=== PATIENT | female | born 1985 | race Two or more races ===

== ENCOUNTER 2019-07-05 19:01 | Emergency (ER) | payer OTHER ==
[~2019-07-05] VITALS: Ht 165.1 cm; Wt 90.7 kg
[2019-07-05 19:14] VITALS: BP 127/85
--- NOTE | 2019-07-05 19:27 | NUR ---
CALLED FOR COVID
== END 2019-07-05 19:45 | disposition home or self-care (01) ==
LOC: ER 19:09
DX: Z03.818 Encounter for observation for suspected exposure to other biological agents ruled out (principal)
CPT/HCPCS: 99283; U0003

== ENCOUNTER 2019-08-02 17:03 | Emergency (ER) | payer OTHER ==
[~2019-08-02] VITALS: Ht 165.1 cm; Wt 122.5 kg
[2019-08-02 17:27] VITALS: BP 138/82
--- NOTE | 2019-08-02 18:50 | NUR ---
Patient discharged to home in stable condition. Written and verbal after care instructions given. Patient verbalizes understanding of instruction.
== END 2019-08-02 18:50 | disposition home or self-care (01) ==
LOC: ER 17:05
DX: Z11.59 Encounter for screening for other viral diseases (principal)
CPT/HCPCS: 99283; C9803; U0003

== ENCOUNTER 2019-08-11 17:03 | Emergency (ER) | payer OTHER ==
[~2019-08-11] VITALS: Ht 165.1 cm; Wt 124.7 kg
[2019-08-11 17:10] VITALS: BP 154/98
--- NOTE | 2019-08-11 17:23 | NUR ---
COVID SWAB DONE AND SENT TO LAB
== END 2019-08-11 17:24 | disposition home or self-care (01) ==
LOC: ER 17:05
DX: Z11.59 Encounter for screening for other viral diseases (principal)
CPT/HCPCS: 99283; C9803; U0003

== ENCOUNTER 2019-09-13 10:12 | Emergency (ER) | payer OTHER ==
[~2019-09-13] VITALS: Ht 170.2 cm; Wt 90.7 kg
[2019-09-13 10:15] VITALS: BP 133/81
== END 2019-09-13 10:34 | disposition home or self-care (01) ==
LOC: ER 10:14
DX: Z11.59 Encounter for screening for other viral diseases (principal)
CPT/HCPCS: 99283; C9803; U0003

== ENCOUNTER 2019-09-19 10:22 | Emergency (ER) | payer OTHER ==
[~2019-09-19] VITALS: Ht 165.1 cm; Wt 122.5 kg
[2019-09-19 10:24] VITALS: BP 133/65
== END 2019-09-19 10:45 | disposition home or self-care (01) ==
LOC: ER 10:24
DX: Z20.828 Contact with and (suspected) exposure to other viral communicable diseases (principal)
CPT/HCPCS: 99283; C9803; U0003

== ENCOUNTER 2019-10-03 11:04 | Emergency (ER) | payer OTHER ==
[~2019-10-03] VITALS: Ht 167.6 cm; Wt 102.1 kg
[2019-10-03 11:14] VITALS: BP 120/70
--- NOTE | 2019-10-03 11:25 | NUR ---
COVID SPECIMEN OBTAINED AND SENT TO LAB.
--- NOTE | 2019-10-03 11:27 | NUR ---
Patient discharged to home in stable condition. Written and verbal after care instructions given. Patient verbalizes understanding of instruction.
== END 2019-10-03 11:28 | disposition home or self-care (01) ==
LOC: ER 11:05
DX: Z20.828 Contact with and (suspected) exposure to other viral communicable diseases (principal)
CPT/HCPCS: 99283; C9803; U0003

== ENCOUNTER 2019-10-09 15:45 | Emergency (ER) | payer OTHER ==
[~2019-10-09] VITALS: Ht 165.1 cm; Wt 122.5 kg
== END 2019-10-09 16:16 | disposition home or self-care (01) ==
LOC: ER 15:46
DX: Z20.828 Contact with and (suspected) exposure to other viral communicable diseases (principal)
CPT/HCPCS: 99283; C9803; U0003

== ENCOUNTER 2019-10-24 18:33 | Emergency (ER) | payer OTHER ==
[~2019-10-24] VITALS: Ht 165.1 cm; Wt 122.5 kg
[2019-10-24 18:44] VITALS: BP 128/80
== END 2019-10-24 19:05 | disposition home or self-care (01) ==
LOC: ER 18:36
DX: Z20.828 Contact with and (suspected) exposure to other viral communicable diseases (principal)
CPT/HCPCS: 99283; C9803; U0003

== ENCOUNTER 2019-10-31 09:41 | Emergency (ER) | payer OTHER ==
[~2019-10-31] VITALS: Ht 165.1 cm; Wt 122.5 kg
[2019-10-31 09:41] VITALS: BP 119/75
== END 2019-10-31 10:32 | disposition home or self-care (01) ==
LOC: ER 09:43
DX: Z20.828 Contact with and (suspected) exposure to other viral communicable diseases (principal)
CPT/HCPCS: C9803-CS; U0003-CS

== ENCOUNTER 2019-11-07 12:11 | Emergency (ER) | payer OTHER ==
[~2019-11-07] VITALS: Ht 165.1 cm; Wt 122.5 kg
[2019-11-07 12:11] VITALS: BP 124/90
--- NOTE | 2019-11-07 12:41 | NUR ---
SWABBED AND SENT TO LAB. NO ACI D/C IN STABLE CONDITION.
== END 2019-11-07 12:42 | disposition home or self-care (01) ==
LOC: ER 12:12
DX: Z20.828 Contact with and (suspected) exposure to other viral communicable diseases (principal)
CPT/HCPCS: 99283; C9803; U0003

== ENCOUNTER 2019-11-20 16:32 | Emergency (ER) | payer OTHER ==
[~2019-11-20] VITALS: Ht 165.1 cm; Wt 74.8 kg
[2019-11-20 16:39] VITALS: BP 130/75
--- NOTE | 2019-11-20 17:21 | NUR ---
Covid swab sent. Patient discharged to home in stable condition. Written and verbal after care instructions given. Patient verbalizes understanding of instruction.
== END 2019-11-20 17:22 | disposition home or self-care (01) ==
LOC: ER 16:33
DX: Z20.828 Contact with and (suspected) exposure to other viral communicable diseases (principal)
CPT/HCPCS: 99283; C9803; U0003

== ENCOUNTER 2019-11-28 09:37 | Emergency (ER) | payer OTHER ==
[~2019-11-28] VITALS: Ht 165.1 cm; Wt 120.2 kg
[2019-11-28 10:03] VITALS: BP 148/97
== END 2019-11-28 10:34 | disposition home or self-care (01) ==
LOC: ER 09:39
DX: Z20.828 Contact with and (suspected) exposure to other viral communicable diseases (principal)
CPT/HCPCS: 99283; C9803; U0003

== ENCOUNTER 2019-12-04 11:46 | Emergency (ER) | payer OTHER ==
[~2019-12-04] VITALS: Ht 170.2 cm; Wt 99.8 kg
[2019-12-04 11:47] VITALS: BP 126/79
--- NOTE | 2019-12-04 12:06 | NUR ---
COVID SWAB DONE AND SENT TO LAB
--- NOTE | 2019-12-04 12:06 | NUR ---
Patient discharged to home in stable condition. Written and verbal after care instructions given. Patient verbalizes understanding of instruction. Pt ambulatory with a steady gait
== END 2019-12-04 12:08 | disposition home or self-care (01) ==
LOC: ER 11:48
DX: Z20.828 Contact with and (suspected) exposure to other viral communicable diseases (principal)
CPT/HCPCS: 99283; C9803; U0003

== ENCOUNTER 2019-12-11 15:17 | Emergency (ER) | payer OTHER ==
[~2019-12-11] VITALS: Ht 165.1 cm; Wt 120.2 kg
[2019-12-11 15:17] VITALS: BP 128/72
== END 2019-12-11 15:56 | disposition home or self-care (01) ==
LOC: ER 15:18
DX: Z20.828 Contact with and (suspected) exposure to other viral communicable diseases (principal)
CPT/HCPCS: 99283; C9803; U0003

== ENCOUNTER 2019-12-19 09:39 | Emergency (ER) | payer OTHER ==
[~2019-12-19] VITALS: Ht 165.1 cm; Wt 120.2 kg
[2019-12-19 09:40] VITALS: BP 126/68
== END 2019-12-19 10:31 | disposition home or self-care (01) ==
LOC: ER 09:40
DX: Z20.828 Contact with and (suspected) exposure to other viral communicable diseases (principal)
CPT/HCPCS: 99283; C9803; U0003

== ENCOUNTER 2019-12-25 10:22 | Emergency (ER) | payer OTHER ==
[~2019-12-25] VITALS: Ht 165.1 cm; Wt 120.2 kg
[2019-12-25 10:24] VITALS: BP 120/80
== END 2019-12-25 10:39 | disposition home or self-care (01) ==
LOC: ER 10:28
DX: Z20.828 Contact with and (suspected) exposure to other viral communicable diseases (principal)
CPT/HCPCS: 99283; C9803; U0003

== ENCOUNTER 2020-01-09 14:53 | Emergency (ER) | payer OTHER ==
[~2020-01-09] VITALS: Ht 165.1 cm; Wt 117.9 kg
[2020-01-09 15:16] VITALS: BP 145/82
--- NOTE | 2020-01-09 15:45 | NUR ---
COVID SWAB SENT, Patient discharged to home in stable condition. Written and verbal after care instructions given. Patient verbalizes understanding of instruction.
== END 2020-01-09 15:46 | disposition home or self-care (01) ==
LOC: ER 14:54
DX: Z20.828 Contact with and (suspected) exposure to other viral communicable diseases (principal)
CPT/HCPCS: 99283; C9803; U0003

== ENCOUNTER 2020-01-14 10:02 | Emergency (ER) | payer OTHER ==
[~2020-01-14] VITALS: Ht 165.1 cm; Wt 117.9 kg
[2020-01-14 10:08] VITALS: BP 121/66
--- NOTE | 2020-01-14 10:32 | NUR ---
covid swab test collected and sent to the lab.
--- NOTE | 2020-01-14 10:36 | NUR ---
Patient discharged to home in stable condition. Written and verbal after care instructions given. Patient verbalizes understanding of instruction.
== END 2020-01-14 10:38 | disposition home or self-care (01) ==
LOC: ER 10:06
DX: Z20.828 Contact with and (suspected) exposure to other viral communicable diseases (principal)
CPT/HCPCS: 99283; C9803; U0003

== ENCOUNTER 2020-02-04 06:57 | Emergency (ER) | payer OTHER ==
[~2020-02-04] VITALS: Ht 165.1 cm; Wt 113.4 kg
[2020-02-04 07:05] VITALS: BP 146/89
--- NOTE | 2020-02-04 08:25 | NUR ---
Covid 19 swab collected and sent to lab
--- NOTE | 2020-02-04 08:26 | NUR ---
Patient discharged to home in stable condition. Written and verbal after care instructions given. Patient verbalizes understanding of instruction.
== END 2020-02-04 08:27 | disposition home or self-care (01) ==
LOC: ER 06:58
DX: J06.9 Acute upper respiratory infection, unspecified (principal); Z20.828 Contact with and (suspected) exposure to other viral communicable diseases; R03.0 Elevated blood-pressure reading, without diagnosis of hypertension
CPT/HCPCS: 99283; C9803; U0003

== ENCOUNTER 2020-06-07 08:11 | Emergency (ER) | payer OTHER ==
[~2020-06-07] VITALS: Ht 165.1 cm; Wt 117.9 kg
[2020-06-07 08:15] VITALS: BP 126/71
--- NOTE | 2020-06-07 08:44 | NUR ---
Patient discharged to home in stable condition. Written and verbal after care instructions given. Patient verbalizes understanding of instruction.
== END 2020-06-07 08:47 | disposition home or self-care (01) ==
LOC: ER 08:17
DX: R05 Cough (principal); Z20.822 Contact with and (suspected) exposure to COVID-19
CPT/HCPCS: 99283; C9803; U0003

== ENCOUNTER 2020-08-01 11:25 | Emergency (ER) | payer OTHER ==
[~2020-08-01] VITALS: Ht 165.1 cm; Wt 117.9 kg
[2020-08-01 11:30] VITALS: BP 129/76
--- NOTE | 2020-08-01 11:52 | NUR ---
Patient discharged to home in stable condition. Written and verbal after care instructions given. Patient verbalizes understanding of instruction.
== END 2020-08-01 11:52 | disposition home or self-care (01) ==
LOC: ER 11:30
DX: Z20.822 Contact with and (suspected) exposure to COVID-19 (principal)
CPT/HCPCS: 99283; C9803; U0003

== ENCOUNTER 2021-01-28 19:30 | Inpatient (IN) | payer BC, OTHER ==
[~2021-01-28] VITALS: Ht 165.1 cm; Wt 124.7 kg
--- NOTE | 2021-01-28 19:50 | NUR ---
PT BIBS C/O MID CHEST PAIN X1 DAY. ALSO C/O FEVER, CONGESTION AND COUGH WITH CLEAR SECRETIONS. PATIENT TOOK IBUPROFEN @ 5PM CIS COORDINATOR. PATIENT ALERT AND ORIENTED X3. AMBULATORY WITH NON LABORED BREATHING.
[2021-01-28] MEDS ORDERED: IV NS 0.9% 1,000 ML BAG IV ONE ×2 (20:00→21:30)
--- NOTE | 2021-01-28 20:15 | NUR ---
LAC #20G S/L; PATENT AND ITNACT. BLOOD COLLECTED AND SENT TO LAB
--- NOTE | 2021-01-28 20:17 | NUR ---
NIKE ATHLETE AT PT'S BEDSIDE
[2021-01-28 20:23] LABS: BASOPHILS # (AUTO) 0.1 K/uL (0.0-0.2); BASOPHILS % (AUTO) 0.6 % (0.0-2.0); EOSINOPHILS % (AUTO) 0.1 % (0.0-6.0); HEMATOCRIT 45 % (33-45); HEMOGLOBIN 15.1 g/dL (11.5-14.8); LYMPHOCYTES # (AUTO) 1.2 K/uL (0.8-4.8); LYMPHOCYTES % (AUTO) 4.9 % (20.0-44.0); MEAN CORPUSCULAR HGB CONC 33 g/dl (31.0-36.0); MEAN CORPUSCULAR VOLUME 88 fL (82-100); MONOCYTES % (AUTO) 4.2 % (2.0-12.0); NEUTROPHILS # (AUTO) 22.3 K/uL (1.8-8.9); NEUTROPHILS % (AUTO) 90.2 % (43.0-81.0); PLATELET COUNT (AUTO) 310 K/uL (150-450); RED BLOOD CELL COUNT(AUTO) 5.13 MIL/uL (4.0-5.2); WHITE BLOOD COUNT (AUTO) 24.7 K/uL (4.3-11.0)
--- NOTE | 2021-01-28 20:28 | NUR ---
URINE COLLECTED AND SENT TO LAB
[2021-01-28 20:40] LABS: CALCIUM, SERUM 9.2 mg/dL (8.5-10.1); CARBON DIOXIDE 23 mmol/L (21-32); CHLORIDE 100 mmol/L (98-107); CREATININE 0.8 mg/dL (0.6-1.3); GLUCOSE 110 mg/dL (74-106); POTASSIUM 3.5 mmol/L (3.5-5.1); SODIUM SERUM 136 mmol/L (136-145); UREA NITROGEN, BLOOD 8 mg/dL (7-18)
[2021-01-28 20:42] LABS: ALANINE AMINOTRANSFERASE 68 U/L (12-78); ALKALINE PHOSPHATASE 96 U/L (46-116); ASPARTATE AMINOTRANSFERASE 76 U/L (15-37); BILIRUBIN,DIRECT 0.2 mg/dL (0.0-0.2); BILIRUBIN,TOTAL 0.9 mg/dL (0.2-1.0); TOTAL PROTEIN, SERUM 8.1 g/dL (6.4-8.2)
[2021-01-28 21:28] LABS: BILIRUBIN,URINE NEGATIVE (NEGATIVE); COLOR,URINE YELLOW (YELLOW); LEUKOCYTE ESTERASE ,URINE SMALL (NEGATIVE); NITRITE, URINE NEGATIVE (NEGATIVE); PH,URINE 6.5 (5.0-8.0); PROTEIN,URINE NEGATIVE (NEGATIVE); UGLUCOSE NEGATIVE (NEGATIVE); UROBILINOGEN,URINE 0.2 EU/dL (0.2)
[2021-01-28] MEDS ORDERED: CEFTRIAXONE 1GM BAG (ER ONLY) 50 ML IV ONE ×2 (21:28→21:30)
[2021-01-28] MEDS ORDERED: AZITHROMYCIN 500 MG VIAL ONE (21:28)
[2021-01-28] MEDS ORDERED: ASPIRIN EC 325 MG TABLET.DR PO ONE (21:29)
[2021-01-28] MEDS ORDERED: ONDANSETRON HCL/PF - ER 4 MG/2 ML VIAL IV ONE (21:30)
[2021-01-28] MEDS ORDERED: ASPIRIN 325 MG TABLET PO ONE (21:30)
[2021-01-28] MEDS ORDERED: AZITHROMYCIN 500 MG in IV D5W 250 ML IV ONE (21:30)
[2021-01-28] MEDS ORDERED: ONDANSETRON HCL/PF 4 MG/2 ML VIAL ONE ×2 (21:31→23:12)
[2021-01-28 21:37] LABS: BACTERIA,URINE 1+ /HPF (None Seen); MUCUS,URINE Few /LPF (None Seen)
--- NOTE | 2021-01-28 22:26 | NUR ---
LACTIC ACID 2.7; PAMELA BOLAÑOS AWARE
[2021-01-28] MEDS ORDERED: MORPHINE SULFATE INJ 2 MG/ML DISP.SYRIN IV PRN (22:30)
[2021-01-28] MEDS ORDERED: ONDANSETRON HCL/PF 4 MG/2 ML VIAL IVP PRN (22:30)
[2021-01-28] MEDS ORDERED: MAG HYDROX/AL HYDROX/SIMETH 30 ML UDC PO PRN (22:30)
[2021-01-28] MEDS ORDERED: ACETAMINOPHEN 325 MG TABLET PO PRN (22:30)
[2021-01-28] MEDS ORDERED: IV NS 0.9% 1,000 ML IV PRN (22:30)
[2021-01-28] MEDS ORDERED: NITROGLYCERIN 0.4 MG/TAB BOTTLE SL PRN (22:30)
[2021-01-28] MEDS ORDERED: DOCUSATE SODIUM 100 MG CAPSULE PO PRN (22:30)
[2021-01-29] MEDS ORDERED: IV NS 0.9% 1,000 ML IV ONE
--- NOTE | 2021-01-29 00:01 | NUR ---
SHAI FISHER HOSPITALIST AT PT'S BEDSIDE
--- NOTE | 2021-01-29 00:27 | NUR ---
REPORT GIVEN TO DANETTE THOMPSON FOR SASKIA
--- NOTE | 2021-01-29 00:32 | NUR ---
COVID PCR COLLECTED AND SENT TO LAB
--- NOTE | 2021-01-29 01:44 | NUR ---
PT GOING TO [facility] NO LONGER [facility]
[2021-01-29 02:59] LABS: C-REACTIVE PROTEIN 7.6 mg/dL (0.0-0.9)
--- NOTE | 2021-01-29 03:14 | NUR ---
REPORT GIVEN TO [facility]
--- NOTE | 2021-01-29 03:30 | NUR ---
PUMP INSTALLER NOTES ADMITTED A 35 Y/O FEMALE A/O X3 ON ROOM AIR ON TELE MONITOR SR , NO SOB NO DISTRESS NOTED , ADMITTED DX FOR CHEST PAIN ON RIGHT AC G#20 IVF OF NS AT 100 CC/HR INFUSING WELL . SKIN IS INTACT , V/S STABLE AFEBRILE , ALL NEEDS ATTENDED TOO CALL LIGHT WITHIN REACH , WELL ENDORSE TO RN DAY SHIFT FOR CONTINUITY OF CARE.
--- NOTE | 2021-01-29 03:31 | NUR ---
PT TRANSPORTED ON CORRECTION WORKER PER [employer]S PROTOCOL WITHOUT INCIDENT
[2021-01-29 04:00] VITALS: BP 141/85
[2021-01-29 08:00] VITALS: BP 120/77
[2021-01-29 08:21] LABS: BILIRUBIN,TOTAL 0.7 mg/dL (0.2-1.0); CALCIUM, SERUM 8.1 mg/dL (8.5-10.1); CREATININE 0.7 mg/dL (0.6-1.3); MAGNESIUM 2.2 mg/dL (1.8-2.4); PHOSPHORUS 3.4 mg/dL (2.5-4.9); POTASSIUM 4.1 mmol/L (3.5-5.1); TOTAL PROTEIN, SERUM 6.7 g/dL (6.4-8.2)
[2021-01-29 08:36] LABS: BASOPHILS # (AUTO) 0.1 K/uL (0.0-0.2); BASOPHILS % (AUTO) 0.4 % (0.0-2.0); EOSINOPHILS % (AUTO) 0.1 % (0.0-6.0); HEMATOCRIT 39 % (33-45); HEMOGLOBIN 13.1 g/dL (11.5-14.8); LYMPHOCYTES # (AUTO) 2.5 K/uL (0.8-4.8); LYMPHOCYTES % (AUTO) 9.3 % (20.0-44.0); MEAN CORPUSCULAR HGB CONC 34 g/dl (31.0-36.0); MEAN CORPUSCULAR VOLUME 90 fL (82-100); MONOCYTES # (AUTO) 1.2 K/uL (0.1-1.30); MONOCYTES % (AUTO) 4.6 % (2.0-12.0); NEUTROPHILS # (AUTO) 22.8 K/uL (1.8-8.9); NEUTROPHILS % (AUTO) 85.6 % (43.0-81.0); PLATELET COUNT (AUTO) 277 K/uL (150-450); RED BLOOD CELL COUNT(AUTO) 4.32 MIL/uL (4.0-5.2); WHITE BLOOD COUNT (AUTO) 26.7 K/uL (4.3-11.0)
[2021-01-29] MEDS ORDERED: DULO30CA52 PO (08:59)
[2021-01-29] MEDS ORDERED: ASPIRIN 81 MG TAB.CHEW PO SCH (09:00)
[2021-01-29] MEDS ORDERED: ENOXAPARIN SODIUM 40 MG/0.4 ML DISP.SYRIN SQ SCH (09:00)
[2021-01-29 09:56] LABS: CHOLESTEROL 185 mg/dL (<200); HDL CHOLESTEROL 54 mg/dL (40-60); LDL 115 mg/dL (0-99); TRIGLYCERIDES 59 mg/dL (30-150)
[2021-01-29] MEDS ORDERED: IV NS 0.9% 250 ML IV ONE (09:57)
[2021-01-29] MEDS ORDERED: IOHEXOL-350 100 ML VIAL IV ONE ×2 (09:57→10:44)
[2021-01-29] MEDS ORDERED: CT SWABBABLE VALVE TRANS SET 1 EA INFUS.SET MC ONE (09:57)
[2021-01-29] MEDS ORDERED: METOPROLOL TARTRATE INJ 5 MG/5 ML AMPUL ONE ×3 (10:12→10:45)
--- NOTE | 2021-01-29 10:23 | NUR ---
RN NOTE PT WAS PICKED UP BY RADIOLOGY FOR CT ANGIOGRAM. IN STABLE CONDITION, NOT IN RESPIRATORY DISTRESS. NO CHEST PAIN NOTED.
[2021-01-29] MEDS: METOPROLOL TARTRATE INJ 5 MG/5 ML AMPUL IVP PRN ×9 (10:25→11:05)
[2021-01-29] MEDS ORDERED: NITROGLYCERIN 0.4 MG/TAB BOTTLE SL ONE (10:30)
--- NOTE | 2021-01-29 11:10 | NUR ---
CTA PROCEDURE WELL TOLERATED BY THE PT. NOT IN RESPIRATORY DISTRESS, V/S STABLE, KEPT RESTED AND COMFORTABLE. REPORT GIVEN TO DONNA PEARL FOR SASKIA.
[2021-01-29 11:14] LABS: THYROID STIMULATING HORMONE 0.575 uIU/mL (0.358-3.74)
[2021-01-29 12:00] VITALS: BP 140/95
[2021-01-29 16:00] VITALS: BP 134/84
[2021-01-29] MEDS ORDERED: CEFU500T66 PO (16:14)
[2021-01-29] MEDS ORDERED: DOXY100T28 PO (16:14)
[2021-01-29] MEDS ORDERED: ALBU8.5H8 INH (16:14)
--- NOTE | 2021-01-29 18:10 | NUR ---
RN NOTE PT D/C TO HOME, NOT IN RESPIRATORY DISTRESS. NO COMPLAINTS OF CHEST PAIN. SINUS RHYTHM. V/S STABLE. WAS PICKED UP BY FAMILY MEMBER. D/C INSTRUCTIONS GIVEN AND VERBALIZED UNDERSTANDING.
[2021-01-29] MEDS ORDERED: CEFTRIAXONE 1 G in IV D5W 50 ML IV SCH (21:00)
== END 2021-01-29 17:55 | disposition home or self-care (01) | DRG 177 ==
LOC: ER 19:34 → TELE 01-29 01:24 → UNDOADMIN 01-29 01:24 → TELE1 01-29 02:44
PROVIDERS: ADMIT Registered Nurse; ATTEND Nurse Practitioner Acute Care
DX: U07.1 COVID-19 (principal); I21.A1 Myocardial infarction type 2; E87.2 Acidosis; N39.0 Urinary tract infection, site not specified; J20.9 Acute bronchitis, unspecified; B96.89 Other specified bacterial agents as the cause of diseases classified elsewhere; E66.9 Obesity, unspecified; Z68.29 Body mass index [BMI] 29.0-29.9, adult
CPT/HCPCS: 36415; 71045-TC; 75574; 80048-TC; 80053-TC; 80061-TC; 80076-TC; 81001; 82550-TC; 83605-TC; 83615-TC; 83735-TC; 84100-TC; 84443-TC; 84484-TC; 84703-TC; 85025-TC; 85378-TC; 86140-TC; 87040-TC; 87081-TC; 87086-TC; 93307-TC; C9803; G0378; J0456; J0696; J1650; J2405; J3490; J7030; J7050; J7060; Q9967; U0003

== ENCOUNTER 2024-08-29 10:16 | Outpatient (CLI) | payer OTHER ==
[~2024-08-29 10:16] MED LIST: ALBU8.5H8 INH; CEFU500T66 PO; DOXY100T28 PO; DULO30CA52 PO
== END 2024-08-29 23:59 | disposition home or self-care (01) ==
LOC: RAD 10:16
PROVIDERS: ATTEND Legal Medicine
DX: M25.531 Pain in right wrist (principal); M67.431 Ganglion, right wrist
CPT/HCPCS: 73100-TC